=== PATIENT | female | born 1945 | race Asian ===

== ENCOUNTER 2022-05-04 00:17 | Observation (INO) ==
[2022-05-04] MEDS ORDERED: MECLIZINE 25 MG TABLET PO STA (00:41)
[2022-05-04] MEDS ORDERED: ONDANSETRON 4 MG/2 ML VIAL IV STA (00:41)
[2022-05-04 00:46] LABS: Basophils % 0.6 % (0.0-0.8); Eosinophils # 0.1 10*3/uL (0.0-0.87); Eosinophils % 1.5 % (0.00-10.9); Hematocrit 40.8 VOL% (35.7-47.0); Hemoglobin 13.9 GM/DL (12.0-16.0); Immature Granulocytes % 0.2 %; Immature Granulocytes Absolute 0.01 #; Lymphocytes # 2.2 10*3/uL (1.4-4.0); Lymphocytes % 41.7 % (21.3-54.2); Mean Corpuscular HGB Conc 34.1 GM/DL (32-36); Mean Corpuscular Volume 89.5 FL (87-102); Mean Platelet Volume 9.1 FL (9.6-12.0); Monocytes # 0.3 10*3/uL (0.11-0.8); Monocytes % 6.3 % (1.7-12.7); Neutrophils % 49.7 % (38.7-73.9); Platelet Count 295 T/CUMM (130-400); Red Blood Count 4.56 MC/CUMM (3.8-5.5); Red Cell Distribution Width 12.9 % (9.3-17.3); White Blood Count 5.3 T/CUMM (4-12)
[2022-05-04] MEDS ORDERED: SODIUM CHLORIDE 0.9% 1,000 ML IV STA (01:02)
[2022-05-04 01:04] LABS: Alanine Aminotransferase 24 U/L (13-56); Albumin 3.7 G/DL (3.4-5.0); Alkaline Phosphatase 59 U/L (45-117); Aspartate Amino Transferase 19 U/L (0-37); Bilirubin,Total < 0.39 MG/DL (0.20-1.00); Blood Urea Nitrogen 19 MG/DL (7-18); Carbon Dioxide 27 MMOL/L (21-32); Chloride 104 MMOL/L (98-107); Glucose 108 MG/DL (74-106); Osmolality,Calculated 277.7 MOS/KG (273-304); Potassium 3.7 MMOL/L (3.5-5.1); Sodium 138 MMOL/L (136-145); Total Protein 6.8 G/DL (6.4-8.2)
[2022-05-04] MEDS ORDERED: DEXAMETHASONE 4 MG/1 ML VIAL IV STA (01:54)
[2022-05-04] MEDS ORDERED: PROMETHAZINE INJ 12.5 MG in SODIUM CHLORIDE 0.9% 50 ML IV STA (01:57)
[2022-05-04] MEDS ORDERED: PROMETHAZINE 25 MG/1 ML VIAL ONE (01:59)
[2022-05-04] MEDS ORDERED: PROMETHAZINE 25 MG/1 ML VIAL IM PRN (03:20)
[2022-05-04] MEDS ORDERED: ACETAMINOPHEN 325 MG TABLET PO PRN (03:20)
[2022-05-04] MEDS ORDERED: ONDANSETRON 4 MG/2 ML VIAL IV PRN (03:20)
[2022-05-04] MEDS ORDERED: LORazepam 2 MG/1 ML VIAL IV PRN (03:20)
[2022-05-04] MEDS: SODIUM CHLORIDE 0.45% 1,000 ML IV SCH ×2 (03:45→11:46)
[2022-05-04] MEDS: MECLIZINE 25 MG TABLET PO SCH ×3 (05:40→18:55)
[2022-05-04] MEDS ORDERED: DOCUSATE SODIUM 100 MG CAPSULE PO SCH (09:00)
[2022-05-04] MEDS ORDERED: PANTOPRAZOLE 40 MG TABLET PO SCH (09:00)
[2022-05-04] MEDS ORDERED: cefTRIAXone 1,000 MG in SODIUM CHLORIDE 0.9% 100 ML IV ONE (09:46)
[2022-05-04] MEDS ORDERED: CLOPIDOGREL 75 MG TABLET PO SCH (10:00)
[2022-05-04] MEDS ORDERED: SIMVASTATIN 10 MG TABLET PO SCH (10:00)
[2022-05-04] MEDS ORDERED: methylPREDNISolone SOD SUC 40 MG/1 ML VIAL IV SCH (10:00)
[2022-05-04 16:43] VITALS: BP 163/84
[2022-05-04] MEDS ORDERED: INFLUENZA VIRUS VACCINE 0.5 ML SYRINGE IM ONE (18:17)
[2022-05-05] MEDS ORDERED: amLODIPine 2.5 MG TABLET PO SCH (09:00)
== END 2022-05-04 18:56 | disposition home or self-care (01) ==
LOC: EDUNIT# → EDBD → N.2W 00:17 → N.ED 00:17 → N.2W 03:16
PROVIDERS: ADMIT Internal Medicine; ATTEND Internal Medicine